=== PATIENT | female | born 1990 | race Caucasian/White ===

== ENCOUNTER 2023-07-04 04:27 | Day surgery (SDC) | payer OTHER ==
[2023-07-03 09:07] VITALS: BMI 19.7
[2023-07-04 10:33] VITALS: TEMP 98
[2023-07-04 10:36] VITALS: RESP 18
[2023-07-04 11:20] VITALS: BP 114/62; PULSE 66
== END 2023-07-04 11:08 | disposition home or self-care (01) ==
LOC: JASU-ENDO 04:27
PROVIDERS: ATTEND Internal Medicine Gastroenterology
PROC: 0DB78ZX Excision of Stomach, Pylorus, Via Natural or Artificial Opening Endoscopic, Diagnostic (ICD-10-PCS; 2023-07-04)
PROC: 0DB68ZX Excision of Stomach, Via Natural or Artificial Opening Endoscopic, Diagnostic (ICD-10-PCS; principal; 2023-07-04 10:30)
DX: K29.50 Unspecified chronic gastritis without bleeding (principal)
CPT/HCPCS: 81025; 88305-TC; 88342-TC